=== PATIENT | female | born 1950 | race Caucasian/White ===

== ENCOUNTER 2023-12-28 14:12 | Outpatient (CLI) | payer MEDICARE ==
--- NOTE | 2023-12-28 17:50 | XRAY Report ---
PROCEDURE: Foot 3+V LT (Weight Bearing) INDICATIONS: LEFT FOOT PAIN TECHNIQUE: 3 views of the foot were acquired. COMPARISON: None. FINDINGS: Bones: No fractures or dislocations. No suspicious bony lesions. Scattered IP degenerative narrowi ng. Mild appearance of overall bone mineral density loss. Calcaneal spurs midfoot degenerative change . Soft tissues: No tibiotalar joint effusion. Achilles tendon appears normal. IMPRESSION: Scattered arthritic changes. No visualized acute fracture or dislocation. However, occult injury cannot be excluded. Recommend abbey rt interval imaging follow-up in 7-10 days as clinically indicated for additional evaluation. Reviewed by: Cecilia Kelly MD on 12/28/2023 5:49 PM PDT Approved by: Cecilia Kelly MD on 12/28/2023 5:49 PM PDT Station ID: [id number]
== END 2023-12-28 14:13 | disposition home or self-care (01) ==
LOC: DI 14:12
PROVIDERS: ATTEND Podiatrist
DX: M19.072 Primary osteoarthritis, left ankle and foot (principal)

== ENCOUNTER 2023-12-30 08:00 | Outpatient (CLI) | payer MEDICARE | END 2023-12-30 23:59 | disposition home or self-care (01) | LOC: LAB 08:00 | PROVIDERS: ATTEND Physician Assistant | DX: N39.0 Urinary tract infection, site not specified (principal) | CPT/HCPCS: 87077; 87086; 87181 ==

== ENCOUNTER 2024-01-07 08:00 | Outpatient (CLI) | payer MEDICARE | END 2024-01-07 23:59 | disposition home or self-care (01) | LOC: LAB 08:00 | PROVIDERS: ATTEND Emergency Medicine | DX: N30.00 Acute cystitis without hematuria (principal) | CPT/HCPCS: 87086 ==